=== PATIENT | male | born 1950 | race Caucasian/White ===

== ENCOUNTER → 2017-11-19 | Outpatient (CLI) | payer MEDICARE ==
--- NOTE | 2017-11-19 20:04 | MRI ---
EXAM DESCRIPTION: Cervical Spine: MRI. CLINICAL HISTORY: CERVICAL DISC DEGENERATION COMPARISON: None. TECHNIQUE: Multiplanar MRI, multiple sequences, non-contrast High-field. FINDINGS: C2-3: Minimal disc desiccation posterior disc space loss. Posterior left disc bulge and Modic type II endplate reactive changes with uncinate spur. Moderate to severe left neural foraminal narrowing. Right foramen patent. Minimal arthrosis right facet. C3-4: Disc space maintained with disc desiccation. Bilateral uncinate spurs with right facet arthrosis. Bilateral mild neural foraminal stenosis. Moderate canal narrowing. C4-5: Moderate disc space loss posterior disc osteophyte bulge into the abutting the cord with Modic type II endplate reactive changes. Borderline canal stenosis. Bilateral uncinate spurs. Bilateral neural foraminal stenosis. Bilateral mild facet arthrosis and left flavum ligament hypertrophy. C5-6: Disc desiccation and minimal disc space loss. Bilateral uncinate spurs. Bilateral facet arthrosis more right than left. Bilateral neural foraminal stenosis more on the right. Mild canal stenosis with anterior spurs and posterior ligaments abutting the cord. Bilateral Modic type II endplate reactive changes. C6-7: Moderate disc space loss with disc desiccation. Bilateral uncinate spurs. Bilateral neural foraminal stenosis. Moderate canal narrowing. Bilateral Modic type II endplate reactive changes. C7-T1: Disc desiccation and grade 1 anterolisthesis. Minimal disc space loss. Posterior flavum ligament hypertrophy bilateral uncinate spurs. Moderate right foraminal narrowing and mild left neural foraminal narrowing. Bilateral mild facet arthrosis T1-2: Disc desiccation bilateral uncinate spurs and bilateral foraminal narrowing. No bulging with canal patent. Minimal bilateral facet arthrosis. Spinal alignment reduced lordosis in the mid spine.. No cord compression or cord edema. Atlantoaxial joint shows minimal arthrosis. Base of the cerebellar tonsils is just above the foramen magnum. Paravertebral soft tissues are unremarkable. Vertebral bodies are not compressed at any level. Normal marrow signal in the remaining vertebral bodies and the posterior elements. IMPRESSION: 1. Central canal stenosis at C5-6 and C4-5. Multifactorial. Bilateral foraminal stenosis at both levels. Correlate for bilateral C5 and C6 radiculopathy. 2. Moderate canal narrowing at C6-7 and disc bulge with bilateral neural foraminal stenosis. 3. Grade 1 anterolisthesis C7-T1 and moderate right neural foraminal narrowing. 4. Posterior left lateral C2-3 disc and osteophyte bulge encroaching on the canal and left neural foramen which is severely narrowed. Correlate for left C3 radiculopathy. Electronically signed by: Hoang Wei MD 11/19/2017 8:03 PM CDT
== END ==
LOC: MRI 11:00
PROVIDERS: ATTEND Family Medicine
DX: M50.30 Other cervical disc degeneration, unspecified cervical region (principal); M48.02 Spinal stenosis, cervical region

== ENCOUNTER → 2018-03-30 | Outpatient (CLI) | payer MEDICARE | LOC: GMAM 11:29 | PROVIDERS: ATTEND Family Medicine | DX: Z12.5 Encounter for screening for malignant neoplasm of prostate (principal) ==

== ENCOUNTER → 2019-01-31 | Outpatient (CLI) | payer MEDICARE, OTHER ==
--- NOTE | 2019-01-31 16:56 | US ---
EXAM DESCRIPTION: Abdomen,Limited: Ultrasound. CLINICAL HISTORY: ABDOMINAL AORTIC PERSONAL HISTORY OF NICOTINE DEPENDENCE COMPARISON: None. TECHNIQUE: Transcutaneous scanning: Two-dimensional and Doppler modes. FINDINGS: Abdominal aorta diameter - Proximal: 2.5 x 2.2 cm. Mid: 2.4 x 2.1 cm. Distal: 1.9 x 1.9 cm. Common Iliac diameter - Right: 13 mm. Left: 12 mm. Other: Atherosclerotic wall changes.. IMPRESSION: No abdominal aortic aneurysm. Ectasia in the bilateral proximal common iliac arteries. Electronically signed by: Hoang Wei MD 01/31/2019 4:54 PM CDT
== END ==
LOC: US 08:30
PROVIDERS: ATTEND Family Medicine
DX: Z87.891 Personal history of nicotine dependence (principal); I77.89 Other specified disorders of arteries and arterioles

== ENCOUNTER 2019-03-14 05:08 | Day surgery (SDC) | payer OTHER ==
[2019-03-14] MEDS ORDERED: TROP 1%/CYCLOPEN 1%/PHENYL 2% DROPS ONE (05:49)
[2019-03-14] MEDS ORDERED: PROPARACAINE 0.5% OPHTH SOL 15 ML BTTL ONE (05:49)
[2019-03-14] MEDS ORDERED: MOXIFLOXACIN HCL (OPHTH) 1 DROP DROPS ONE (05:49)
[2019-03-14] MEDS ORDERED: MIDAZOLAM INJ 2 MG/2 ML VIAL ONE (06:15)
[2019-03-14] MEDS ORDERED: PROPARACAINE 0.5% OPHTH SOL 15 ML BTTL RIGHT_EYE ONE (08:53)
[2019-03-14] MEDS ORDERED: MOXIFLOXACIN HCL (OPHTH) 1 DROP DROPS RIGHT_EYE ONE ×2 (09:01→09:10)
[2019-03-14] MEDS ORDERED: DEXAMETHASONE 0.1% OPHTH SOL 1 DROP RIGHT_EYE ONE ×2 (09:01→09:11)
[2019-03-14] MEDS ORDERED: LIDOCAINE 1% MPF 2 ML VIAL INJ ONE (09:01)
[2019-03-14] MEDS ORDERED: TOBRAMYCIN SULF 0.3 % OPHT SOL 1 DROP RIGHT_EYE ONE ×2 (09:02→09:11)
[2019-03-14] MEDS ORDERED: BRIMONIDINE 0.2% OPHTH DROPS RIGHT_EYE ONE ×2 (09:02→09:11)
== END 2019-03-14 10:05 | disposition home or self-care (01) ==
LOC: AMB 05:08
PROVIDERS: ATTEND Ophthalmology
DX: H25.11 Age-related nuclear cataract, right eye (principal); I10 Essential (primary) hypertension; Z79.899 Other long term (current) drug therapy
CPT/HCPCS: 00142; 66984; J2250

== ENCOUNTER 2019-03-28 05:26 | Day surgery (SDC) | payer OTHER ==
[2019-03-28] MEDS ORDERED: MIDAZOLAM INJ 2 MG/2 ML VIAL IV ONE (05:27)
[2019-03-28] MEDS ORDERED: TROP 1%/CYCLOPEN 1%/PHENYL 2% DROPS ONE (05:48)
[2019-03-28] MEDS ORDERED: MOXIFLOXACIN HCL (OPHTH) 1 DROP DROPS ONE (05:48)
[2019-03-28] MEDS ORDERED: PROPARACAINE 0.5% OPHTH SOL 15 ML BTTL ONE (05:48)
[2019-03-28] MEDS ORDERED: PROPARACAINE 0.5% OPHTH SOL 15 ML BTTL LEFT_EYE ONE (07:17)
[2019-03-28] MEDS ORDERED: LIDOCAINE 1% MPF 2 ML VIAL INJ ONE (07:27)
[2019-03-28] MEDS ORDERED: BRIMONIDINE 0.2% OPHTH DROPS LEFT_EYE ONE ×2 (07:28→07:40)
[2019-03-28] MEDS ORDERED: MOXIFLOXACIN HCL (OPHTH) 1 DROP DROPS LEFT_EYE ONE ×2 (07:28→07:40)
[2019-03-28] MEDS ORDERED: TOBRAMYCIN SULF 0.3 % OPHT SOL 1 DROP LEFT_EYE ONE ×2 (07:28→07:40)
[2019-03-28] MEDS ORDERED: DEXAMETHASONE 0.1% OPHTH SOL 1 DROP LEFT_EYE ONE ×2 (07:28→07:40)
== END 2019-03-28 08:20 | disposition home or self-care (01) ==
LOC: AMB 05:26
PROVIDERS: ATTEND Ophthalmology
DX: H25.12 Age-related nuclear cataract, left eye (principal); I10 Essential (primary) hypertension; Z79.899 Other long term (current) drug therapy
CPT/HCPCS: 00142; 66984; J2250

== ENCOUNTER → 2019-04-15 | Outpatient (CLI) | payer OTHER ==
--- NOTE | 2019-04-18 10:45 | CT ---
Procedure: CT LUNG SCREENING Exam Date: 04/15/2019. Ordering Provider: Quoc Ash Clinical Indication: PERSONAL HISTORY OF TOBACCO USE . Smoking cessation x 6 years. 60 pack years. This patient meets eligibility criteria for low-dose CT lung cancer screening. Comparison: Chest radiograph March 2018. Technique: Using a multislice scanner, sequential helical axial imaging was obtained in the thorax, 2.5 mm thickness, 2.5 mm separation, from the level of the thoracic inlet through the lung bases without IV contrast. A low dose protocol was utilized for BMI less than 30: BMI: 27. CTDI: 1.76 mGy. 120. kVp. 45 mA. DLP 63.23 mGy-cm. 2D sagittal and coronal reconstructed images, 6.0 mm thickness, were obtained. This exam was performed according to our departmental dose optimization program which includes use of automated exposure control, adjustment of the mA and/or kV according to patient size and/or use of iterative reconstruction technique. Nodule measurements under 10 mm are given as mean value of 3 axes diameters. FINDINGS: Lungs and large airways: Bibasilar pleural-parenchymal scarring. Scattered bilateral dilated airspaces. Focal pleural thickening versus solid nodule 3.1 mm bilateral right middle lobe on axial image 2/97. Groundglass nodule versus pleural thickening, dimensions 6.8 mm, on the dome of the right hemidiaphragm pleura on the same image. Calcified nodules in the superior lateral aspect of the superior segment left lower lobe associated with pleural parenchymal changes abutting the superior lateral left major fissure on images 2/44-47. 2.5 mm solid nodule superior segment left lower lobe on image 2/92. 2 mm solid nodule subpleural versus focal pleural thickening posterior left apex on image 2/13. 2 mm calcified nodule lateral base right upper lobe on image 2/50. Pleura and space: Bilateral sporadic multifocal pleural thickening. No effusion or pneumothorax. Mediastinum and yusuf: evaluation limited by low dose technique and lack of IV contrast. Nodular calcifications middle mediastinum, bilateral yusuf and posterior mediastinum most likely degenerated lymph nodes. No enlarged lymph nodes or dominant soft tissue masses. Heart and great vessels: Atherosclerotic calcification proximal right innominate artery and distal thoracic aorta. Possible coronary artery calcification at the bifurcation of the left main artery. Chest wall, lower neck, axillae: Evaluation also limited by same factors as described above. Heterogeneous thyroid gland small. Small axillary lymph nodes. Upper abdomen: Evaluation limited by low-dose technique. No free air or free fluid in the included peritoneal space. Included adrenal glands and spleen unremarkable except for superior anterior splenic calcification. Question of a small posterior left hemidiaphragmatic hernia on images 2/101-105. Fat-containing. Osseous structures: Evaluation limited by low dose MIP technique. Multiple levels of spondylosis thoracic spine with gas density in some of the disc spaces. No lytic or blastic lesions. IMPRESSION: 1. Solid pulmonary nodules not abnormal in diameter and groundglass nodule also within the subclinical range. Bilateral calcified parenchymal nodules. Scattered bilateral dilated airspaces. Hilar mediastinal calcifications. This along with parenchymal calcified nodules suggest prior granulomatous disease or atypical bacterial infection. [facility] Best Practice Recommendations: please see below for Lung RADS category and FOLLOW-UP.* *Lung RADS category CATEGORY 2S- Nodules with a very low likelihood (less than 1%) of becoming a clinically active cancer due to size or lack of growth. Nodules: Perifissural nodule(s) < 10 mm. (526mm3). Solid or part solid nodule(s) less than 6mm (113.1 mm3), new solid nodule less than 4mm (33.5 mm3). Ground glass nodule(s) less than 30mm (96473.2 mm3) or unchanged or slow growing ground glass nodule 30mm or greater. Cat 3 or 4 nodule unchanged for 3 or more months. FOLLOW-UP: Continue annual screening with a Low Dose Chest CT in 12 months for re-evaluation. 2. Lung RADS Modifier S - Clinically Significant or Potentially Clinically Significant Findings (non lung cancer). Possible posterior left hemidiaphragmatic hernia. Electronically signed by: Hoang Wei MD 04/18/2019 10:43 AM [facility]
== END ==
LOC: CT 11:04
PROVIDERS: ATTEND Family Medicine
DX: Z87.891 Personal history of nicotine dependence (principal); R91.8 Other nonspecific abnormal finding of lung field

== ENCOUNTER → 2019-08-15 | Outpatient (CLI) | payer OTHER | LOC: GMAM 11:45 | PROVIDERS: ATTEND Family Medicine | DX: Z12.5 Encounter for screening for malignant neoplasm of prostate (principal); I10 Essential (primary) hypertension; E78.2 Mixed hyperlipidemia; Z79.899 Other long term (current) drug therapy ==

== ENCOUNTER → 2020-04-16 | Outpatient (CLI) | payer OTHER ==
--- NOTE | 2020-04-16 09:33 | CT ---
Procedure: CT LUNG SCREENING Exam Date: April 16, 2020. Ordering Provider: Quoc Ash Clinical Indication: LUNG SCREEN . Smoking cessation x7 years. 40 pack-year history. This patient meets eligibility criteria for low-dose CT lung cancer screening. Comparison: CT lung screening examination April 15, 2019 Technique: Using a multislice scanner, sequential helical axial imaging was obtained in the thorax, 2.5 mm thickness, 2.5 mm separation, from the level of the thoracic inlet through the lung bases without IV contrast. A low dose protocol was utilized for BMI less than 30: BMI: 27. CTDI: 1.76 mGy. 120. kVp. 45 mA. DLP 67 mGy-cm. 2D sagittal and coronal reconstructed images, 6.0 mm thickness, were obtained. This exam was performed according to our departmental dose optimization program which includes use of automated exposure control, adjustment of the mA and/or kV according to patient size and/or use of iterative reconstruction technique. Nodule measurements under 10 mm are given as mean value of 3 axes diameters. FINDINGS: Lungs and large airways: Scattered blebs in the parenchyma upper lobes more than lower lobes bilaterally. Subpleural chronic density medial right lower lobe with smaller subpleural densities in the left lower lobe. Bilateral subpleural densities in the apices and abutting the bilateral major fissures. Calcified granuloma and other nodules in the superior segment left lower lobe abutting the major fissure and lateral subpleural region. Stable subpleural bulla bilaterally. Largest abutting the lingular segment anteriorly and medially. Stable 3 mm subpleural nodule lateral right middle lobe on axial series 2, image 100 and stable 7.5 mm groundglass nodule abutting the right hemidiaphragm on same image. Perifissural thickening on the horizontal fissure. No change. No new abnormal nodules or new mass. No acute infiltrate. Pleura and space: Apical pleural thickening and other sites of nonfocal thickening with no acute process. Mediastinum and yusuf: evaluation limited by low dose technique and lack of IV contrast. No enlarged nodes or dominant soft tissue mass. Heart and great vessels: Minimal coronary artery calcification, enlarging since the prior study. Minimal calcification of the descending thoracic aorta and several brachiocephalic vessels. No interval change. Chest wall, lower neck, axillae: Evaluation also limited by same factors as described above. Axillary nodes are normal size. No dominant soft tissue mass. . Upper abdomen: Evaluation limited by low-dose technique. No free fluid or free air. Stable small fat-containing hernia posterior left hemidiaphragm. Osseous structures: Evaluation limited by low dose MIP technique. Multiple levels of spondylosis of the thoracic spine. Bilateral glenohumeral and sternoclavicular arthrosis. IMPRESSION: Multiple small solid nodule subpleural lung bilaterally. Stable groundglass nodule right lower lobe base abutting the right hemidiaphragm. No new abnormal nodules and no acute infiltrate.. [facility] Best Practice Recommendations: please see below for Lung RADS category and FOLLOW-UP.* *Lung RADS category CATEGORY 2- Nodules with a very low likelihood (less than 1%) of becoming a clinically active cancer due to size or lack of growth. Nodules: Perifissural nodule(s) < 10 mm. (526mm3). Solid or part solid nodule(s) less than 6mm (113.1 mm3), new solid nodule less than 4mm (33.5 mm3). Ground glass nodule(s) less than 30mm (12656.2 mm3) or unchanged or slow growing ground glass nodule 30mm or greater. Cat 3 or 4 nodule unchanged for 3 or more months. FOLLOW-UP: Continue annual screening with a Low Dose Chest CT in 12 months for re-evaluation. 2. Lung RADS Modifier S - Clinically Significant or Potentially Clinically Significant Findings (non lung cancer). Increasing coronary artery calcifications. Electronically signed by: Hoang Wei MD 04/16/2020 9:31 AM [facility]
== END ==
LOC: CT 07:55
PROVIDERS: ATTEND Family Medicine
DX: Z12.2 Encounter for screening for malignant neoplasm of respiratory organs (principal); R91.8 Other nonspecific abnormal finding of lung field; Z87.891 Personal history of nicotine dependence